=== PATIENT | male | born 1980 | race Caucasian/White ===

== ENCOUNTER 2016-10-23 23:28 | Emergency (ER) | payer OTHER ==
[2016-10-23 21:00] LABS: BASOPHIL% 0.7 % (0-2.5); EOSINOPHIL# 0.2 X10e3 (0-0.7); EOSINOPHIL% 2.4 % (0.0-7.0); HEMATOCRIT 38.5 % (38.0-50.0); HEMOGLOBIN 13.2 gm/dL (13.0-16.0); LYMPHOCYTE# 1.7 X10e3 (1.0-3.5); LYMPHOCYTE% 24.1 % (17.0-45.0); MEAN CELL VOLUME 84.7 FL (83-96); MEAN CORPUSCULAR HGB CONC 34.2 g/dL (30-36); MEAN PLATELET VOLUME 8.2 FL (6.5-11.5); MONOCYTE# 0.7 X10e3 (0-1.0); MONOCYTE% 9.4 % (3.0-12.0); NEUTROPHIL# 4.5 X10e3 (1.5-7.1); NEUTROPHIL% 63.4 % (40-75); PLATELET COUNT 218 X10e3 (140-420); RED BLOOD COUNT 4.54 X10e (3.90-5.60); RED CELL DISTRIBUTION WIDTH 13.3 % (11.0-15.5); WHITE BLOOD COUNT 7.1 X10e3 (4.0-10.5)
[2016-10-23 21:02] LABS: DIFF IND NO
[2016-10-23 21:28] LABS: ALBUMIN SERUM 4.4 g/dL (3.5-5.0); ALKALINE PHOSPHATASE 64 U/L (32-92); ALT (SGPT) 50 U/L (10-40); AMYLASE 140 U/L (0-46); AST (SGOT) 22 U/L (10-42); BILIRUBIN,TOTAL 0.4 mg/dL (0.2-2.0); BLOOD UREA NITROGEN 19 mg/dL (9-23); CARBON DIOXIDE 24 mmol/L (22-31); CHLORIDE 107 mmol/L (100-111); GLOM FILT RATE Estimated 95.1 mL/min (>60); GLUCOSE FASTING 106 mg/dL (70-110); LIPASE 217 U/L (22-51); POTASSIUM 3.8 mmol/L (3.5-5.1); PROTEIN TOTAL SERUM 7.4 g/dL (6.0-8.3); SODIUM 139 mmol/L (135-145)
[2016-10-23 21:29] LABS: BILIRUBIN, DIRECT <0.1 mg/dL (0.0-0.2); BILIRUBIN,INDIRECT 0.3 mg/dL (0.0-0.9)
[2016-10-24 01:53] LABS: URINE SOURCE CLEAN CATCH
[2016-10-24 01:57] LABS: URINE APPEARANCE CLEAR; URINE BILIRUBIN NEG (NEG); URINE BLOOD NEG (NEG); URINE COLOR YELLOW; URINE GLUCOSE NEG (NEG); URINE KETONE NEG (NEG); URINE LEUKOCYTE ESTERASE NEG (NEG); URINE NITRATE NEG (NEG); URINE PROTEIN NEG (NEG); URINE SPECIFIC GRAVITY 1.024 (1.003-1.035)
[2016-10-24 02:07] LABS: AMPHETAMINE NEG (NEG); BARBITURATES NEG (NEG); BENZODIAZEPINES NEG (NEG); COCAINE NEG (NEG); MARIJUANA NEG (NEG); OPIATES POS (NEG); TRICYCLIC ANTIDEPRESSANTS NEG (NEG); U METHADONE NEG (NEG)
[2016-10-25] MEDS ORDERED: DESYREL50 MG PO (10:48)
[2016-10-25] MEDS ORDERED: CRESTOR PO (11:36)
[2016-10-25] MEDS ORDERED: ROBAXIN 750750 M1 PO (11:37)
[2016-10-25] MEDS ORDERED: PROTONIX20 MG PO (11:40)
[2016-10-25] MEDS ORDERED: TRICOR145 MG PO (11:40)
[2016-10-25] MEDS ORDERED: MELOXICAM15 MG PO (11:41)
[2016-10-25] MEDS ORDERED: ZOFRAN PO (11:43)
[2016-10-25] MEDS ORDERED: PERCOCET 7.5-31 EACH PO (11:43)
== END 2016-10-24 03:00 | disposition home or self-care (01) ==
LOC: CED 23:28
PROVIDERS: Nurse Practitioner Family; Student in an Organized Health Care Education/Training Program
DX: K85.90 Acute pancreatitis without necrosis or infection, unspecified (principal); E78.5 Hyperlipidemia, unspecified; E78.1 Pure hyperglyceridemia; Z88.0 Allergy status to penicillin
CPT/HCPCS: 36415; 80048; 80076; 80307; 81003; 82150; 83690; 85025; 96361; 96374; 96375; 96376; 99284; J1885; J2270

== ENCOUNTER 2016-10-25 03:09 | Inpatient (IN) | payer OTHER ==
--- NOTE | ~2016-10-25 | CT2 ---
[facility] A Service of [facility] RADIOLOGY TEXT RESULTS PATIENT: ARTUR CINTRON LOCATION: CEDOF : 78 UNIT #: [id number] AGE: [address]: Rio Call MD SEX: M ORDER DR: [id number] [facility] [address] [place], [place] [address] [id number] I MR#: [id number] Acc #: [id number] NAME: ARTUR CINTRON : 1980 SEX: M STUDY DATE/TIME: 10/25/2016 4:32 UNIT: CEDOF ROOM: 93640 STUDY DESCRIPTION: CT Abd and Pelv W Cont Attending Physician: Rio Call M.D. Ordering Physician: Obey Velasquez M.D. Primary Care Physician: Primary Care Physician No MEDICAL IMAGING REPORT This report is preliminary unless electronic signature is present EXAM CT abdomen and pelvis with contrast, 10/25/2016 HISTORY 36-year-old male with left lower quadrant abdominal pain for 2 weeks. COMPARISON None TECHNIQUE Helical scan performed through the abdomen and pelvis following administration of IV contrast. Coronal and sagittal reformatted images. This CT exam was performed with one or more of the following radiation dose reduction techniques: automatic exposure control, adjustment of mA and/or kV according to patient size, and iterative reconstruction. FINDINGS Visualized lung bases are unremarkable. The liver, spleen, gallbladder, both adrenal glands, and both kidneys are within normal limits. There is mild inflammatory stranding around the head and uncinate process of the pancreas suggesting acute pancreatitis. Correlation with amylase and lipase. Abdominal aorta normal in course and caliber. Small bowel is unremarkable without obstruction. The appendix is normal. Colon unremarkable. Postsurgical changes of the small bowel in the left mid abdomen. No free fluid or free air. Urinary bladder and prostate gland are unremarkable. No free pelvic fluid. No acute bony abnormality. IMPRESSION [facility] A Service of [facility] RADIOLOGY TEXT RESULTS PATIENT: ARTUR CINTRON LOCATION: CEDOF : 78 UNIT #: [id number] AGE: [address]: Rio Call MD SEX: M ORDER DR: 1. Mild peripancreatic inflammatory stranding involving the head and uncinate process, consistent with acute pancreatitis. Correlation with amylase and lipase recommended. 2. Normal appendix. 3. Remainder of the examination is unremarkable. Dictated by... Jarek South M.D. THIS IS AN ELECTRONICALLY VERIFIED REPORT Jarek South M.D. at 10/25/2016 11:29 PM Sparkle TD: 10/25/2016 15:13 JOB #: [id number] MEDICAL IMAGING REPORT Page 1 of 1 COPY
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
--- NOTE | ~2016-10-25 | A ---
[facility] Nutrition Therapy DATE: 10/28/16 Patient: ARTUR CINTRON Physician: ISABELLA Address: [address] Room/Bed: [address] [place] [address], Zip: [place] [address] Admit Date: 10/25/16 Date of : [birth year] Height: 6 4 Weight: 260 117.93 NUTRITIONAL ASSESSMENT: REASON: Diet education RE: acute pancreatitis 36 yo male admitted for abdominal pain Anthropometrics: Ht: 6'4" Wt: 117.7 kg (259#) BMI: 31.5 Assessment: RD manager internship provided written and verbal acute pancreatitis diet education. Visited with pt and family. Pt was in abdominal pain during time of visit. Pt reported living with family present. RD manager internship encouraged low fat diet and provided list of foods not recommended/ foods recommended. RD discussed avoiding fried and fast food. Pt's family asked questions regarding cooking methods. Family verbalized understanding of topic.Expect moderate compliance with diet, with family support. Recommendations: 1. Encourage compliance with low fat diet (once diet advances). 2. Reconsult RD if further diet education is needed/requested. RD will f/u per protocol. Respectfully, Kymberly Charles, Rn Lvn Katharine Marin MS, RD, LD Food and Nutritional Services [facility] cc: client file
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
--- NOTE | ~2016-10-25 | US6 ---
[facility] A Service of [facility] & [facility] RADIOLOGY TEXT RESULTS PATIENT: ARTUR CINTRON LOCATION: C2A 219-01 : [birth year] UNIT #: [id number] AGE: [address]: Moris Jimenes MD SEX: M ORDER DR: [id number] [facility] [address] [place], [place] [address] [id number] I MR#: [id number] Acc #: [id number] NAME: ARTUR CINTRON : 1980 SEX: M STUDY DATE/TIME: 10/27/2016 13:41 UNIT: C2A ROOM: 219 STUDY DESCRIPTION: US Abdominal Limited Attending Physician: Moris Jimenes M.D. Ordering Physician: Moris Jimenes M.D. Primary Care Physician: No Primary Care Physician MEDICAL IMAGING REPORT This report is preliminary unless electronic signature is present EXAM Right upper quadrant ultrasound, 10/27/2016. HISTORY Right upper quadrant abdominal pain and nausea for 2 weeks, worsening in the last 5 days. FINDINGS The liver demonstrates an increase in echotexture with attenuation of the ultrasound beam, characteristic of fatty infiltration. No cystic or solid mass lesions were seen in the liver. The intra- and extrahepatic bile ducts are not dilated. The gallbladder is normal with no evidence of cholelithiasis, wall thickening, or pericholecystic fluid. The common duct measure 3 mm. The pancreas and right kidney are normal. IMPRESSION Fatty infiltration of the liver. Otherwise, negative right upper quadrant ultrasound. Dictated by... Arsh Sánchez M.D. THIS IS AN ELECTRONICALLY VERIFIED REPORT Arsh Sánchez M.D. at 10/28/2016 7:46 AM SEEMA/neri TD: 10/27/2016 17:24 JOB #: [id number] MEDICAL IMAGING REPORT Page 1 of 1 COPY
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
--- NOTE | ~2016-10-25 | DS ---
Unit #: [id number] #: [id number] Patient: ARTUR CINTRON [id number] [address] [address] [id number] I MR#: [id number] NAME: ARTUR CINTRON ROOM: 219 Age: 36 Sex: M Admission Date: 10/25/2016 : 1980 Discharge Date: 10/29/2016 Attending Physician: Moris Jimenes M.D. Primary Care Physician: No Primary Care Physician DISCHARGE SUMMARY DISCHARGE DIAGNOSES 1. Acute pancreatitis. 2. Hypertriglyceridemia. 3. Abdominal pain. 4. Drug-seeking behavior. MEAT BLENDER Dr. Cope, gastroenterology. PROCEDURES The patient had an upper gastrointestinal endoscopy with finding of moderately severe ulcerative esophagitis involving the distal and mid esophagus. Otherwise, exam was normal up to third part of duodenum. DIAGNOSTIC STUDIES IMAGING: CT of the abdomen and pelvis on October 25. Impression - Mild peripancreatic inflammatory stranding along the head and uncinate process, consistent with acute pancreatitis. Normal appendix. Remainder of the exam is unremarkable. Ultrasound of right upper quadrant. Impression - Fatty infiltration of the liver. Otherwise, negative right upper quadrant ultrasound. Acute abdominal series done on 10/28/16. Impression - Nonobstructing bowel gas pattern. LABS: BMP - Glucose 138, BUN 9, creatinine 1.2, sodium 140, potassium 4.1, chloride 106, CO2 25, calcium 9.3, total protein 7.1, albumin 4.1, total bilirubin 0.5, AST 13, ALT 24, alkaline phosphatase 67, amylase 100, lipase 200. The patient's triglyceride level was 208. CBC - WBC 8.8, RBC 4.62, hemoglobin 13.1, hematocrit 39.7, MCV 85.9, MCH 20.4, MCHC 33, RDW 13.2, platelets 229, MPV 8.8. HOSPITAL COURSE The patient is a 36-year-old male with past medical history of chronic pancreatitis, as well as triglyceridemia who presented to the emergency department due to severe abdominal pain. The patient stated he had severe left upper quadrant abdominal pain radiating to his back for 2 weeks. The patient has been taking a lot of pain medicine at home, but due to its inability to control his back pain, he presented to the emergency department for further evaluation. The patient had CT abdomen, which was consistent with acute pancreatitis. His amylase was 140, lipase 217 on admission. We checked the source of the hypertriglyceridemia and found that it was 208, which is elevated but not too terribly elevated. The Unit #: [id number] #: [id number] Patient: ARTUR CINTRON patient continues to have persistent left upper quadrant abdominal pain. Dr. Cope saw him in consultation who did an upper EGD with findings of gastritis consistent with acid reflux but did not contribute to the patient's pancreatitis. He did assess a right upper quadrant abdominal ultrasound, which was unremarkable. The patient's liver enzymes are within normal limits. On exam the patient truly does not have tenderness to palpation, but the patient continued to persist with left upper quadrant pain radiating to his back. The patient was given continued bowel rest, but his pain still persisted. When tried to adjust the pain medicine, going from Dilaudid to morphine, the patient states that Dilaudid is the only pain medicine that would be able to control his pain, and if we were not to treat him with Dilaudid for pain, he wanted to be discharged. At this time we are discharging the patient. DISCHARGE CONDITION Stable. DISCHARGE DIET The patient has been counselled by sox analyst for a low-fat diet for his chronic pancreatitis. DISCHARGE FOLLOWUP Follow up with his primary care physician within 1-2 weeks. DISCHARGE MEDICINES 1. Continue with home medicines. No prescriptions given. 2. Desyrel 50 mg orally at bedtime. 3. Zofran 4 mg orally q.8 hours as needed for nausea. 4. TriCor 145 mg orally daily. 5. Crestor 20 mg orally daily. 6. Due to his persistent complaint of constipation, we are recommending the patient continue Colace orally daily. 7. The patient may also continue with meloxicam 15 mg orally daily. 8. Percocet 7.5/325 mg orally q.4 hours as needed for pain. 9. Protonix 20 mg orally b.i.d. 10. Robaxin 750 mg orally t.i.d. Dictated by... Betty Schmidt PA-C for Bharathi Stout/camron TD: 10/30/2016 07:19 JOB #: [id number] DISCHARGE SUMMARY Page 1 of 1 X X DISCHARGE SUMMARY
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
[2016-10-25 03:44] LABS: BASOPHIL% 0.5 % (0-2.5); EOSINOPHIL# 0.2 X10e3 (0-0.7); EOSINOPHIL% 2.2 % (0.0-7.0); HEMATOCRIT 38.9 % (38.0-50.0); HEMOGLOBIN 12.9 gm/dL (13.0-16.0); LYMPHOCYTE# 1.9 X10e3 (1.0-3.5); LYMPHOCYTE% 23.4 % (17.0-45.0); MEAN CORPUSCULAR HEMOGLOBIN 28.6 PG (28-34); MEAN CORPUSCULAR HGB CONC 33.3 g/dL (30-36); MEAN PLATELET VOLUME 8.8 FL (6.5-11.5); MONOCYTE# 0.6 X10e3 (0-1.0); MONOCYTE% 7.2 % (3.0-12.0); NEUTROPHIL# 5.4 X10e3 (1.5-7.1); NEUTROPHIL% 66.7 % (40-75); PLATELET COUNT 209 X10e3 (140-420); RED BLOOD COUNT 4.52 X10e (3.90-5.60); WHITE BLOOD COUNT 8.1 X10e3 (4.0-10.5)
[2016-10-25 03:55] LABS: DIFF IND NO
[2016-10-25 04:15] LABS: ALBUMIN SERUM 4.2 g/dL (3.5-5.0); BILIRUBIN, DIRECT 0.2 mg/dL (0.0-0.2); BILIRUBIN,INDIRECT 0.4 mg/dL (0.0-0.9); BILIRUBIN,TOTAL 0.6 mg/dL (0.2-2.0); CALCIUM SERUM 8.9 mg/dL (8.4-10.2); CREATININE SERUM 1.2 mg/dL (0.6-1.4); GLOM FILT RATE Estimated 76.3 mL/min (>60); PROTEIN TOTAL SERUM 7.1 g/dL (6.0-8.3)
[2016-10-25] MEDS ORDERED: DESYREL50 MG PO (10:48)
[2016-10-25] MEDS ORDERED: CRESTOR PO (11:36)
[2016-10-25] MEDS ORDERED: ROBAXIN 750750 M1 PO (11:37)
[2016-10-25] MEDS ORDERED: TRICOR145 MG PO (11:40)
[2016-10-25] MEDS ORDERED: PROTONIX20 MG PO (11:40)
[2016-10-25] MEDS ORDERED: MELOXICAM15 MG PO (11:41)
[2016-10-25] MEDS ORDERED: ZOFRAN PO (11:43)
[2016-10-25] MEDS ORDERED: PERCOCET 7.5-31 EACH PO (11:43)
[2016-10-26 05:55] LABS: BASOPHIL% 0.5 % (0-2.5); DIFF IND NO; EOSINOPHIL# 0.2 X10e3 (0-0.7); EOSINOPHIL% 2.2 % (0.0-7.0); HEMATOCRIT 37.3 % (38.0-50.0); HEMOGLOBIN 12.3 gm/dL (13.0-16.0); LYMPHOCYTE# 1.3 X10e3 (1.0-3.5); LYMPHOCYTE% 16.5 % (17.0-45.0); MEAN CELL VOLUME 85.9 FL (83-96); MEAN CORPUSCULAR HEMOGLOBIN 28.2 PG (28-34); MEAN CORPUSCULAR HGB CONC 32.9 g/dL (30-36); MEAN PLATELET VOLUME 8.7 FL (6.5-11.5); MONOCYTE# 0.5 X10e3 (0-1.0); MONOCYTE% 6.1 % (3.0-12.0); NEUTROPHIL# 5.7 X10e3 (1.5-7.1); NEUTROPHIL% 74.7 % (40-75); PLATELET COUNT 205 X10e3 (140-420); RED BLOOD COUNT 4.35 X10e (3.90-5.60); RED CELL DISTRIBUTION WIDTH 13.1 % (11.0-15.5); WHITE BLOOD COUNT 7.6 X10e3 (4.0-10.5)
[2016-10-26 06:37] LABS: BUN/CREATININE RATIO 8.18; CALCIUM SERUM 9.2 mg/dL (8.4-10.2); CREATININE SERUM 1.1 mg/dL (0.6-1.4); GLOM FILT RATE Estimated 84.7 mL/min (>60)
[2016-10-27 05:55] LABS: HEMATOCRIT 37.3 % (38.0-50.0); HEMOGLOBIN 12.5 gm/dL (13.0-16.0); MEAN CELL VOLUME 85.1 FL (83-96); MEAN CORPUSCULAR HEMOGLOBIN 28.5 PG (28-34); MEAN CORPUSCULAR HGB CONC 33.5 g/dL (30-36); MEAN PLATELET VOLUME 8.2 FL (6.5-11.5); RED BLOOD COUNT 4.38 X10e (3.90-5.60); WHITE BLOOD COUNT 7.7 X10e3 (4.0-10.5)
[2016-10-27 06:30] LABS: BILIRUBIN,TOTAL 0.6 mg/dL (0.2-2.0); CALCIUM SERUM 9.3 mg/dL (8.4-10.2); GLOM FILT RATE Estimated 95.1 mL/min (>60); POTASSIUM 4.2 mmol/L (3.5-5.1); PROTEIN TOTAL SERUM 7.1 g/dL (6.0-8.3)
[2016-10-28 07:59] LABS: BASOPHIL% 0.4 % (0-2.5); EOSINOPHIL# 0.1 X10e3 (0-0.7); EOSINOPHIL% 1.1 % (0.0-7.0); HEMATOCRIT 39.7 % (38.0-50.0); HEMOGLOBIN 13.1 gm/dL (13.0-16.0); LYMPHOCYTE# 0.9 X10e3 (1.0-3.5); LYMPHOCYTE% 9.9 % (17.0-45.0); MEAN CELL VOLUME 85.9 FL (83-96); MEAN CORPUSCULAR HEMOGLOBIN 28.4 PG (28-34); MEAN PLATELET VOLUME 8.8 FL (6.5-11.5); MONOCYTE# 0.4 X10e3 (0-1.0); MONOCYTE% 5.1 % (3.0-12.0); NEUTROPHIL# 7.3 X10e3 (1.5-7.1); NEUTROPHIL% 83.5 % (40-75); PLATELET COUNT 229 X10e3 (140-420); RED BLOOD COUNT 4.62 X10e (3.90-5.60); RED CELL DISTRIBUTION WIDTH 13.2 % (11.0-15.5); WHITE BLOOD COUNT 8.8 X10e3 (4.0-10.5)
[2016-10-28 08:03] LABS: DIFF IND NO
[2016-10-28 08:22] LABS: ALBUMIN SERUM 4.1 g/dL (3.5-5.0); BILIRUBIN,TOTAL 0.6 mg/dL (0.2-2.0); CALCIUM SERUM 9.3 mg/dL (8.4-10.2); GLOM FILT RATE Estimated 95.1 mL/min (>60); MAGNESIUM 1.8 mg/dL (1.6-3.0); POTASSIUM 4.3 mmol/L (3.5-5.1)
[2016-10-29 10:29] LABS: ALBUMIN SERUM 4.1 g/dL (3.5-5.0); BILIRUBIN,TOTAL 0.5 mg/dL (0.2-2.0); BUN/CREATININE RATIO 7.5; CALCIUM SERUM 9.3 mg/dL (8.4-10.2); CREATININE SERUM 1.2 mg/dL (0.6-1.4); GLOM FILT RATE Estimated 76.3 mL/min (>60); POTASSIUM 4.1 mmol/L (3.5-5.1); PROTEIN TOTAL SERUM 7.1 g/dL (6.0-8.3)
== END 2016-10-29 15:56 | disposition home or self-care (01) | DRG 439 ==
LOC: CED 03:09 → CEDOF 05:15 → C2A 10-26 18:22
PROVIDERS: Emergency Medicine; Family Medicine; Internal Medicine; Internal Medicine Gastroenterology
PROC: 0DJ08ZZ Inspection of Upper Intestinal Tract, Via Natural or Artificial Opening Endoscopic (ICD-10-PCS; principal; 2016-10-27 17:54)
DX: K85.90 Acute pancreatitis without necrosis or infection, unspecified (principal); K22.10 Ulcer of esophagus without bleeding; E78.1 Pure hyperglyceridemia; Z88.0 Allergy status to penicillin; K21.9 Gastro-esophageal reflux disease without esophagitis; Z76.5 Malingerer [conscious simulation]
CPT/HCPCS: 36415; 74022; 74177; 76705; 80048; 80053; 80076; 82150; 83036; 83690; 83735; 84443; 84478; 85025; 85027; 96361; 96374; 96375; 96376; 99285; C9113; J1170; J2270; J2405; Q9967

== ENCOUNTER → 2016-11-27 | Outpatient (CLI) | payer OTHER ==
[~2016-11-27] MED LIST: CRESTOR PO; DESYREL50 MG PO; MELOXICAM15 MG PO; PERCOCET 7.5-31 EACH PO; PROTONIX20 MG PO; ROBAXIN 750750 M1 PO; TRICOR145 MG PO; ZOFRAN PO
[2016-11-27 11:28] LABS: HEMATOCRIT 40.3 % (38.0-50.0); HEMOGLOBIN 13.1 gm/dL (13.0-16.0); MEAN CORPUSCULAR HEMOGLOBIN 28.1 PG (28-34); MEAN CORPUSCULAR HGB CONC 32.6 g/dL (30-36); MEAN PLATELET VOLUME 8.7 FL (6.5-11.5); RED BLOOD COUNT 4.68 X10e (3.90-5.60); RED CELL DISTRIBUTION WIDTH 13.5 % (11.0-15.5); WHITE BLOOD COUNT 6.4 X10e3 (4.0-10.5)
[2016-11-27 12:01] LABS: ALBUMIN SERUM 4.2 g/dL (3.5-5.0); ALKALINE PHOSPHATASE 145 U/L (32-92); ALT (SGPT) 60 U/L (10-40); AMYLASE 24 U/L (0-46); AST (SGOT) 25 U/L (10-42); BILIRUBIN,TOTAL 0.6 mg/dL (0.2-2.0); BLOOD UREA NITROGEN 18 mg/dL (9-23); CALCIUM SERUM 9.3 mg/dL (8.4-10.2); CARBON DIOXIDE 24 mmol/L (22-31); CHLORIDE 106 mmol/L (100-111); CHOLESTEROL 192 mg/dL (0-200); CREATININE SERUM 0.8 mg/dL (0.6-1.4); GLOM FILT RATE Estimated 113.4 mL/min (>60); GLUCOSE FASTING 150 mg/dL (70-110); HDL CHOLESTEROL 22 mg/dL (29-75); LIPASE 53 U/L (22-51); POTASSIUM 3.8 mmol/L (3.5-5.1); PROTEIN TOTAL SERUM 7.5 g/dL (6.0-8.3); SODIUM 139 mmol/L (135-145)
[2016-11-27 12:05] LABS: TRIGLYCERIDES 657 mg/dL (10-160)
== END | disposition home or self-care (01) ==
LOC: CLAB 11:05
PROVIDERS: Nurse Practitioner
DX: K86.1 Other chronic pancreatitis (principal); R10.12 Left upper quadrant pain; R10.11 Right upper quadrant pain
CPT/HCPCS: 36415; 80053; 80061; 82150; 83690; 85027